=== PATIENT | male | born 1980 | race Caucasian/White ===

== ENCOUNTER 2024-10-31 21:33 | Emergency (ER) | payer OTHER | END 2024-11-01 00:21 | disposition home or self-care (01) | LOC: JP.ED 21:33 | DX: S82.832A Other fracture of upper and lower end of left fibula, initial encounter for closed fracture (principal); W10.9XXA Fall (on) (from) unspecified stairs and steps, initial encounter | CPT/HCPCS: 73610-26-LT; 73610-LT; 73630-26-LT; 73630-LT; 99283; 99284 ==

== ENCOUNTER 2025-11-04 08:09 | Day surgery (SDC) | payer OTHER ==
[~2025-11-04 08:09] MED LIST: Midazolam 1 MG/ML 2 ML SDV ONE; Propofol 200 MG/20 ML SDV ONE; fentaNYL 50 MCG/ML SDV ONE
[2025-11-04] MEDS: Lactated Ringers 1,000 ML IV SCH (09:08)
== END 2025-11-04 11:18 | disposition home or self-care (01) ==
LOC: JP.SDS 08:09
PROVIDERS: ATTEND Surgery
DX: D12.5 Benign neoplasm of sigmoid colon (principal); K62.89 Other specified diseases of anus and rectum; K64.8 Other hemorrhoids
CPT/HCPCS: 45380; 45385; 45398; J2250; J2704; J3010; J7120; 00811-QZ; 88305; 88313